=== PATIENT | female | born 1995 | race Asian ===

== ENCOUNTER 2022-05-31 22:47 | Emergency (ER) | payer MEDICAID ==
[~2022-05-31] VITALS: Ht 160 cm; Wt 72.7 kg
[2022-05-31] MEDS ORDERED: DOCO200C5 PO (22:54)
[2022-05-31 23:39] LABS: COVID AG,FIA SOURCE NASOPHARYNGEAL
[2022-05-31 23:47] LABS: APPEARANCE,URINE HAZY (CLEAR); BILIRUBIN,URINE NEGATIVE (NEGATIVE); GLUCOSE, URINE (UA) NEGATIVE (NEGATIVE); KETONES,URINE NEGATIVE (NEGATIVE); LEUKOCYTE ESTERASE ,URINE MODERATE (NEGATIVE); NITRATE,URINE NEGATIVE (NEGATIVE); OCCULT BLOOD,URINE NEGATIVE (NEGATIVE); PH,URINE 6.5 (5.0-8.0); PROTEIN,URINE NEGATIVE (NEGATIVE); SPECIFIC GRAVITIY, URINE 1.006 (1.003-1.030); UROBILINOGEN,URINE <=1.0 mg/dL (<=1.0)
[2022-05-31 23:53] LABS: BASOPHILS % (AUTO) 0.3 % (0.0-2.0); EOSINOPHILS % (AUTO) 0.9 % (1.0-6.0); HEMATOCRIT 35.9 % (36-46); HEMOGLOBIN 11.8 g/dL (12.0-16.0); LYMPHOCYTES # (AUTO) 1.3 K/uL (1.0-4.8); LYMPHOCYTES % (AUTO) 17.4 % (22.0-44.0); MEAN CORPUSCULAR HEMOGLOBIN 28.5 pg (26.0-34.0); MEAN CORPUSCULAR HGB CONC 32.9 G/dL (31.0-37.0); MEAN CORPUSCULAR VOLUME 87 fL (80-100); MONOCYTES # (AUTO) 0.8 K/uL (0.1-1.0); MONOCYTES % (AUTO) 10.2 % (2.0-9.0); NEUTROPHILS # (AUTO) 5.3 K/uL (1.8-7.7); NEUTROPHILS % (AUTO) 71.2 % (40.0-70.0); PLATELET COUNT (AUTO) 250 K/uL (150-450); RED BLOOD CELL COUNT(AUTO) 4.15 MIL/uL (4.00-5.20); RED CELL DISTRIBUTION WIDTH 13.3 % (11.5-14.5)
[2022-05-31 23:57] LABS: ANION GAP 6 mmol/L (8-16); CALCIUM, TOTAL 8.2 mg/dL (8.8-10.5); CARBON DIOXIDE 26 mmol/L (22-29); CHLORIDE 104 mmol/L (98-107); CREATININE 0.48 mg/dL (0.60-1.30); GLOMERULAR FILTR. RATE CALC > 60 mL/min (>60); GLUCOSE,RANDOM 92 mg/dL (70-110); POTASSIUM 3.2 mmol/L (3.5-5.1); SODIUM SERUM 136 mmol/L (136-145); UREA NITROGEN, BLOOD 5 mg/dL (7-18)
[2022-06-01] MEDS ORDERED: PYRIDOXINE HCL 50 MG TABLET PO ONE
[2022-06-01] MEDS ORDERED: DOXYLAMINE SUCCINATE 25 MG TABLET PO ONE
[2022-06-01] MEDS ORDERED: ACETAMINOPHEN 500 MG TABLET PO ONE
[2022-06-01 00:05] LABS: INFLUENZA TYPE A NEGATIVE FOR TYPE A (NEGATIVE); INFLUENZA TYPE B NEGATIVE FOR TYPE B (NEGATIVE)
[2022-06-01 00:06] LABS: BACTERIA,URINE Rare /HPF (None Seen); RBC,URINE None Seen /HPF (0-2); SQUAMOUS EPITHELIAL CELL,UR Moderate /LPF (None Seen)
[2022-06-01 00:23] LABS: ALANINE AMINOTRANSFERASE 33 U/L (12-78); ALBUMIN 2.9 g/dL (3.4-5.0); ALKALINE PHOSPHATASE 74 U/L (46-116); ASPARTATE AMINOTRANSFERASE 33 U/L (15-37); BILIRUBIN,TOTAL 0.2 mg/dL (0.1-1.0); LIPASE 78 U/L (73-393); TOTAL PROTEIN, SERUM 7.2 g/dL (6.4-8.2)
[2022-06-01 00:24] LABS: HCG,QUANTITATIVE 14918 mIU/mL (0-6)
[2022-06-01] MEDS ORDERED: CEPHALEXIN MONOHYDRATE 500 MG CAPSULE PO ONE (02:30)
[2022-06-01] MEDS ORDERED: CEPH-558 PO (04:10)
[2022-06-01] MEDS ORDERED: DOXY1TAB3 PO (04:10)
[2022-06-01 04:22] VITALS: BP 117/71
== END 2022-06-01 04:26 | disposition home or self-care (01) ==
LOC: EMS 22:52
DX: O23.32 Infections of other parts of urinary tract in pregnancy, second trimester (principal); N39.0 Urinary tract infection, site not specified; O21.2 Late vomiting of pregnancy; Z3A.24 24 weeks gestation of pregnancy; Z20.822 Contact with and (suspected) exposure to COVID-19
CPT/HCPCS: 76705; 76817; 80053; 81001; 83690; 84702; 85025; 87086; 87186; 87804; 99284

== ENCOUNTER 2024-01-23 21:28 | Emergency (ER) | payer MEDICAID ==
[~2024-01-23] VITALS: Ht 160 cm; Wt 71.8 kg
[~2024-01-23 21:28] MED LIST: CEPH-558 PO; DOCO200C5 PO; DOXY1TAB3 PO
[2024-01-23 21:41] VITALS: BP 114/80; PULSE 74; RESP 20; TEMP 98.8; O2SAT 98
[2024-01-24] MEDS ORDERED: CEPH-558 PO (05:11)
== END 2024-01-24 05:40 | disposition home or self-care (01) ==
LOC: EMS 21:29
DX: L03.032 Cellulitis of left toe (principal); Z04.3 Encounter for examination and observation following other accident
CPT/HCPCS: 99283